=== PATIENT | female | born 1955 | race Caucasian/White ===

== ENCOUNTER → 2017-06-14 10:05 | Outpatient (CLI) | payer OTHER ==
[2015-05-11 12:38] VITALS: BMI 36.9
[~2017-06-14 10:05] MED LIST: ANTIVIRAL; CARAFATE1 G PO; EFFEXOR XR150 MG PO; FLAGYL 500500 MG/100 PO; MAGNESIUM OXID250 MG PO; NEXIUM20 MG PO; POTASSIUM99 M1 PO; STERAPRED 5MG 125 MG PO; TRIAMTERENE-HCT1 TA1 PO; VITAMIN B-12500 MCG PO; ZOVIRAX200 MG PO
== END ==
LOC: D.MAMMO 10:05
DX: Z12.31 Encounter for screening mammogram for malignant neoplasm of breast (principal)

== ENCOUNTER → 2018-11-07 19:45 | Outpatient (CLI) | payer OTHER ==
[2015-05-11 12:38] VITALS: BMI 36.9
== END | disposition home or self-care (01) ==
LOC: D.MAMMO 15:00
DX: Z12.31 Encounter for screening mammogram for malignant neoplasm of breast (principal)